=== PATIENT | male | born 1980 | race Caucasian/White ===

== ENCOUNTER 2017-04-11 08:27 | Emergency (ER) | payer MEDICAID, OTHER ==
[2017-04-11 08:54] VITALS: BP 132/91
--- NOTE | 2017-04-11 09:38 | UC ---
UC General HPI - HPI Summary HPI Summary: 37 yo gentleman c/o last 2 days rundown, myalgias, fever, cough (min productive) , no rash, no GI. Mild h/a. - History of Current Complaint Chief Complaint: UCRespiratory Stated Complaint: chills/achy/flu symptoms Time Seen by Provider: 04/11/17 09:07 Hx Obtained From: Patient Pain Intensity: 5 - Allergy/Home Medications Allergies/Adverse Reactions: Allergies Allergy/AdvReac Type Severity Reaction Status Date / Time No Known Allergies Allergy Verified 04/11/17 08:47 Home Medications: Home Medications Ibuprofen TAB* [Advil TAB*] 200 mg PO Q6H PRN 04/11/17 [History Confirmed ] PMH/Surg Hx/FS Hx/Imm Hx Previously Healthy: Yes - Surgical History Surgical History: Yes Surgery Procedure, Year, and Place: RIGHT EAR SURGERY - Family History Known Family History: Positive: None - Social History Alcohol Use: None Substance Use Type: None Smoking Status (MU): Heavy Every Day Tobacco Smoker Household Exposure Type: Cigarettes Review of Systems Constitutional: Fever, Fatigue Skin: Negative Eyes: Negative ENT: Sore Throat, Nasal Discharge, Sinus Congestion Respiratory: Cough Cardiovascular: Negative Gastrointestinal: Negative Genitourinary: Negative Motor: Negative Neurovascular: Negative Musculoskeletal: Negative Neurological: Negative Psychological: Negative Is Patient Immunocompromised?: No All Other Systems Reviewed And Are Negative: Yes Physical Exam Triage Information Reviewed: Yes Appearance: Well-Nourished Vital Signs: Initial Vital Signs Temp 97.6 F 04/11/17 08:48 Pulse 105 04/11/17 08:48 Resp 20 04/11/17 08:48 BP 132/91 04/11/17 08:48 Pulse Ox 99 04/11/17 08:48 Vital Signs Reviewed: Yes Eye Exam: Other - grossly normal ENT: Positive: Pharyngeal erythema, TM dull, Other - runny nose Neck exam: Normal Neck: Positive: Supple Respiratory Exam: Normal, Other - + cough Respiratory: Positive: Chest non-tender, Lungs clear, Normal breath sounds, No respiratory distress Cardiovascular Exam: Normal - HR a little fast, c/w illness Cardiovascular: Positive: No Murmur, Pulses Normal, Brisk Capillary Refill Abdominal Exam: Normal Abdomen Description: Positive: Nontender Bowel Sounds: Positive: Present Musculoskeletal Exam: Normal Neurological Exam: Normal Psychological Exam: Normal Skin Exam: Normal Course/Dx - Course Course Of Treatment: Influenza B. Reviewed with pt, and d/w pt coa / tx plan. Questions as posed answered to the best of my ability. seek medical attention for worse or new problems. - Differential Dx - Multi-Symptom Provider Diagnoses: Influenza B Discharge - Discharge Plan Condition: Stable Disposition: HOME Prescriptions: Albuterol HFA INHALER* [Ventolin HFA Inhaler*] 1 - 2 puff INH Q6H PRN #1 mdi PRN Reason: Wheezing Oseltamivir CAP* [Tamiflu CAP*] 75 mg PO BID #10 cap Patient Education Materials: Influenza (ED) Forms: *Work Release Referrals: No Primary Care Phys,NOPCP [Primary Care Provider] - Additional Instructions: Drink plenty of fluids. Seek medical attention for worse or new problems.
== END 2017-04-11 09:44 | disposition home or self-care (01) ==
LOC: UCCORT 08:27
DX: J10.1 Influenza due to other identified influenza virus with other respiratory manifestations (principal); F17.210 Nicotine dependence, cigarettes, uncomplicated
CPT/HCPCS: 87502; 99202; G0463

== ENCOUNTER 2017-07-16 08:18 | Emergency (ER) | payer OTHER ==
[2017-07-16 08:35] VITALS: BP 134/92
--- NOTE | 2017-07-16 08:48 | UC ---
Skin Complaint HPI - HPI Summary HPI Summary: Prior hx of zoster and this feels similar. 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 There is a patch of left flank rash that is tender now. It started with some itchiness. - History of Current Complaint Chief Complaint: UCRash Time Seen by Provider: 07/16/17 08:36 Stated Complaint: SKIN COMPLAINT Hx Obtained From: Patient Onset/Duration: Gradual Onset, Lasting Days Skin Exposure Onset/Duration: Hours Ago Timing: Constant Onset Severity: Moderate Current Severity: Moderate Pain Intensity: 6 Location: Discrete Character: Pruritus, Pain, Raised Aggravating Factor(s): Touch Alleviating Factor(s): Nothing Associated Signs & Symptoms: Positive: Rash, Tenderness - Allergy/Home Medications Allergies/Adverse Reactions: Allergies Allergy/AdvReac Type Severity Reaction Status Date / Time No Known Allergies Allergy Verified 07/16/17 08:31 Review of Systems Skin: Rash All Other Systems Reviewed And Are Negative: Yes PMH/Surg Hx/FS Hx/Imm Hx Previously Healthy: No - shingles. denies being immunocompromised or having any other conditions. - Surgical History Surgical History: Yes Surgery Procedure, Year, and Place: Right Mastoiditis, ~1985, [place] - Family History Known Family History: Positive: None - Social History Occupation: Employed Full-time Alcohol Use: None Substance Use Type: None Smoking Status (MU): Heavy Every Day Tobacco Smoker Type: Cigarettes Amount Used/How Often: 1 PPD Length of Time of Smoking/Using Tobacco: Since Age 17 Household Exposure Type: Cigarettes Physical Exam Triage Information Reviewed: Yes Appearance: Well-Appearing, No Pain Distress, Obese Vital Signs: Initial Vital Signs Temp 97.9 F 07/16/17 08:29 Pulse 90 07/16/17 08:29 Resp 16 07/16/17 08:29 BP 134/92 07/16/17 08:29 Pulse Ox 100 07/16/17 08:29 Vital Signs Reviewed: Yes Eyes: Positive: Conjunctiva Clear ENT: Positive: Normal ENT inspection, Hearing grossly normal Neck: Positive: Supple, Nontender, No Lymphadenopathy. Negative: Nuchal Rigidity Respiratory: Positive: Lungs clear, Normal breath sounds, No respiratory distress, No accessory muscle use. Negative: Respiratory distress, Decreased breath sounds, Accessory muscle use, Crackles, Rhonchi, Stridor Cardiovascular: Positive: No Murmur, Pulses Normal Abdomen Description: Positive: Nontender, No Organomegaly. Negative: Distended , Guarding Musculoskeletal: Positive: Strength Intact, ROM Intact. Negative: No Edema Neurological: Positive: Alert, Muscle Tone Normal. Negative: Fatigued Psychological: Positive: Age Appropriate Behavior Skin: Positive: rashes, Other - One left flank patch with vesicles. No induration or streaking. Course/Dx - Diagnoses Provider Diagnoses: shingles. Discharge - Sign-Out/Discharge Documenting (check all that apply): Discharge/Admit/Transfer - Discharge Plan Condition: Good Disposition: HOME Prescriptions: Acyclovir* [Zovirax 400 MG TAB*] 400 mg PO 5ID #25 tab predniSONE TAB* [Deltasone TAB*] 40 mg PO DAILY #7 tab Patient Education Materials: Shingles (ED) Forms: *Work Release Referrals: No Primary Care Phys,NOPCP [Primary Care Provider] - - Billing Disposition and Condition Condition: GOOD Disposition: HOME
== END 2017-07-16 08:48 | disposition home or self-care (01) ==
LOC: UCCORT 08:18
DX: B02.9 Zoster without complications (principal); F17.210 Nicotine dependence, cigarettes, uncomplicated
CPT/HCPCS: 99212; G0463

== ENCOUNTER 2018-03-18 08:32 | Emergency (ER) | payer OTHER ==
[2018-03-18 08:41] VITALS: BP 133/98
--- NOTE | 2018-03-18 08:52 | UC ---
Cardiac HPI - HPI Summary HPI Summary: The patient is a 37-year-old male with the onset of left-sided chest pain on . The patient started when he was supine in a forced him to sit up. The pain is been constant since its onset. The pain waxes and wanes. It has a pleuritic component. It is worse when he is laying flat. WHen is laying down the pain radiates through to his back. He has noted shortness of breath. He has no fever or chills. He has no cough. He has no nausea vomiting or diarrhea. He denies any abdominal pain. He smokes one pack of cigarettes per day. He denies any drug use. There is no family history of coronary artery disease. - History of Current Complaint Stated Complaint: CHEST PAINS Time Seen by Provider: 03/18/18 08:35 Hx Obtained From: Patient Onset/Duration: Sudden Onset, Lasting Days Timing: Constant Initial Severity: Moderate Current Severity: Moderate Pain Intensity: 3 - 6 when supine Chest Pain Location: Left Anterior Character: Tightness Aggravating Factor(s): Position, Deep Breaths Alleviating Factor(s): Position Associated Signs & Symptoms: Positive: Chest Pain, Diaphoresis - x1 last PM when pain was severe. Negative: Vision Changes, Anxiety, Recent Stress, Headaches, Numbness, Tingling, Weakness, Dizziness, SOB, Swelling, Syncope, Fever - Allergy/Home Medications Allergies/Adverse Reactions: Allergies Allergy/AdvReac Type Severity Reaction Status Date / Time No Known Allergies Allergy Verified 03/18/18 08:40 Home Medications: Home Medications NK [No Home Medications Reported] 03/18/18 [History Confirmed 03/18/18] PMH/Surg Hx/FS Hx/Imm Hx Previously Healthy: Yes - Surgical History Surgical History: Yes Surgery Procedure, Year, and Place: Right Mastoiditis, ~1985, [place] - Family History Known Family History: Positive: Other - [place] - Social History Alcohol Use: None Substance Use Type: None Smoking Status (MU): Heavy Every Day Tobacco Smoker Type: Cigarettes Amount Used/How Often: 1 PPD Length of Time of Smoking/Using Tobacco: Since Age 17 Household Exposure Type: Cigarettes Review of Systems All Other Systems Reviewed And Are Negative: Yes Constitutional: Positive: Negative Skin: Positive: Negative Eyes: Positive: Negative ENT: Positive: Negative Respiratory: Positive: Negative Cardiovascular: Positive: Chest Pain Gastrointestinal: Positive: Negative Genitourinary: Positive: Negative Motor: Positive: Negative Neurovascular: Positive: Negative Musculoskeletal: Positive: Negative Neurological: Positive: Negative Psychological: Positive: Negative Physical Exam Triage Information Reviewed: Yes Appearance: Well-Appearing, No Pain Distress, Well-Nourished Vital Signs: see nurses note AF, P98, POx 100, bp 133/98 Vital Signs Reviewed: Yes Eyes: Positive: Conjunctiva Clear Diagnostics - Laboratory Diagnostic Studies Completed/Ordered: POx 100% RA, comment: normal/not hypoxic - EKG Cardiac Rate: NL Cardiac Rhythm: Sinus: Normal Ectopy: None ST Segment: Non-Specific EKG Comparison: Other - no comparison EKG available - Assessment/Plan Course Of Treatment: D/W Dr. Cortes. pt accepted at [facility] ER. 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 His will drive - Clinical Impression Provider Diagnosis: Chest pain of uncertain etiology Discharge - Sign-Out/Discharge Documenting (check all that apply): Patient Departure All imaging exams completed and their final reports reviewed: No Studies - Discharge Plan Condition: Stable Disposition: HOME-RECOMMEND TO ED Referrals: Jermaine Herbert MD [Primary Care Provider] - Additional Instructions: please go directly to the ER they are expecting you we are faxing your EKG there I spoke to Dr. Cortes You had 4 baby aspirin here - Billing Disposition and Condition Condition: STABLE Disposition: Home-Recommend to ED
[2018-03-18] MEDS ORDERED: Aspirin 81 mg CHEW TAB* 81 MG TAB.CHEW PO SCH (09:00)
[2018-03-18] MEDS ORDERED: Aspirin 81 mg CHEW TAB* 81 MG TAB.CHEW PO ONE (09:17)
== END 2018-03-18 09:10 | disposition home health service (06) ==
LOC: UCCORT 08:32
DX: R07.9 Chest pain, unspecified (principal); F17.210 Nicotine dependence, cigarettes, uncomplicated
CPT/HCPCS: 93005; 99212; A9270-GY; G0463